=== PATIENT | female | born 1970 | race Caucasian/White ===

== ENCOUNTER 2021-12-29 10:38 | Day surgery (SDC) | payer OTHER, BC, SELFPAY ==
[2021-12-26] MEDS: OXYCODONE (CR) 10 MG TAB.ER.12H PO (11:00)
[2021-12-26] MEDS: CELECOXIB 200 MG CAPSULE PO (11:00)
[2021-12-26] MEDS: CEFAZOLIN 2 GM INJ IVP (13:13)
[2021-12-29] VITALS (27 sets, daily range): BP systolic 99–128; BP diastolic 63–86; PULSE 56–79; RESP 12–16; TEMP 36.4–36.8; O2SAT 91–99; BMI 28.8
[2021-12-29] MEDS: fentaNYL 100 MCG/2 ML inj IVP (10:53)
[2021-12-29] MEDS: ACETAMINOPHEN 500 MG TABLET 1000 MG PO (11:00)
[2021-12-29] MEDS: LACTATED RINGERS 1000 ML 1,000 ML 100 ML IV ×2 (11:00→14:43)
[2021-12-29] MEDS: MIDAZOLAM HCL 1 MG/ML inj IVP (12:55)
--- NOTE | 2021-12-29 13:25 | P.NB_ITS ---
Nerve Block Nerve Block Time Seen by Provider: 13:00 Date Seen: 12/29/21 Type of block requested by surgeon for post-operative analgesia: interscalene Side: right Time out performed: Yes Verification of patient name: Yes Verification of date of : Yes Site marking: site marked Name of person performing procedure: Ethan Continuous monitoring Was continuous monitoring of O2 sat, B/P, manager cardiac cath, recorded every 15 minutes?: Yes Procedure Checklist: sterile prep, needles and gloves Ultrasound guided. Images saved: Yes Medications given in 5ml increments after negative aspiration: Ropivicaine %: 0.5 mL: 20 Needle gauge: 22 Decadron (mg): 10 Precedex (mcg): 25 Patient tolerated procedure well: Yes
--- NOTE | 2021-12-29 14:42 | SUR.OPER ---
PATIENT QUESTIONS ANSWERED SATISFACTORILY PREOPERATIVELY. PATIENT BROUGHT TO OR #4 PER CART FOLLOWING THE BLOCK. Patient positioned supine on OR #4 bed for the intubation.? Perioperative team wrapped the?left arm in a neutral position on the pt. abdomen with the drawsheet.?Right arm elevated on an IV pole in a padded strap. Final approval of positioning by surgeon. CONTINUOUS IRRIGATION OF THE LEFT SHOULDER WITH MIXTURE OF 3000 NACL AND 1mg OF EPINEPHRINE DURING PROCEDURE.
--- NOTE | 2021-12-29 14:43 | P.ORPRC_ITS ---
Procedure Note Procedure: SURGEON: Yosef Henao MD TEACHING PASTOR: Yenny Vale PA-C PREOPERATIVE DIAGNOSIS: Right shoulder rotator cuff tear, biceps tendinopathy POSTOPERATIVE DIAGNOSIS: Right shoulder rotator cuff tear, biceps tendinopathy NAME OF OPERATION: Right shoulder arthroscopic subacromial decompression, mini open rotator cuff repair, biceps tenodesis ANESTHESIA: Supraclavicular block plus general endotracheal ESTIMATED BLOOD LOSS: 5 mL COMPLICATIONS: None SPECIMENS: None DRAINS: None PREOPERATIVE ANTIBIOTICS: Ancef 2 grams INDICATIONS: The patient is a 51-year-old female with a history of right shoulder pain secondary to the above diagnoses. Despite appropriate non operative management, they continue to have symptoms. Operative intervention was recommended. The risks, benefits and expected outcomes were discussed in detail. These included but were not limited to: Infection, bleeding, injury to blood vessel or nerve, venous thromboembolism. All questions were answered to their satisfaction. PROCEDURE: A supraclavicular block was placed by Anesthesia. General anesthesia was administered. The patient was placed in the high beach chair position. The right shoulder was prepped and draped in the usual sterile fashion. The glenohumeral joint was infiltrated with 20 mL of normal saline with epinephrine. The posterior portal was established, the arthroscope was introduced. The anterior portal was established, Diagnostic arthroscopy was performed with findings as follows: The biceps has a marked amount of intra- articular tendinopathy. The anterior, posterior and superior labrum are normal. Articular surfaces on the humeral head and glenoid are normal. There are no loose bodies. There is a full-thickness tear of the supraspinatus. The biceps was tenotomized with the arthroscopic scissors. The stump was debrided with the shaver. The arthroscope was placed in the subacromial space, the lateral portal was established. The Arthrex [place] was used to dissect the acromion free. The CA ligament was recessed off the anterior acromion, the AC joint was exposed. The acromioplasty was performed with the bur in the posterior portal. The bur was then placed in the lateral portal and the lateral and anterior aspect of the acromion were resected. The undersurface of the distal clavicle was resected through the lateral portal. Finally, the bur was placed in the anterior portal and the remainder of the distal clavicle was resected for a total of 10 mm. An accessory anterolateral portal was placed. The subacromial/subdeltoid bursa was aggressively debrided. There is a full-thickness tear of the supraspinatus. Arthroscopic instruments were removed. The accessory anterolateral portal was extended proximally and distally, subcutaneous dissection was taken with electrocautery to the deltoid. The deltoid was divided in line with its fibers. The static retractor was placed. The subacromial/subdeltoid bursa was debrided with the Mcdonough scissors. The greater tuberosity was debrided to punctate bleeding bone using the [place]pert rongeur. A whip stitch was placed in the biceps with a FiberLink and the scorpion. Two Arthrex Bio[employer]posite SwiveLock anchors were placed just off the articular surface. We incorporated the biceps into the eyelet of the more anterior anchor, completing the biceps tenodesis. Both limbs of the FiberWire and fiber tape were passed using the scorpion. A fiber link was placed in the leading edge of the rotator cuff x2. We tied the 2 central FiberWire sutures over the rotator cuff. We then proceeded with a lateral row of SwiveLock anchors x 2 crossing the FiberTape and incorporating the FiberWire and fiber link into each lateral row anchor. This provides an anatomic, watertight repair of the rotator cuff. There is no tension on the repair with the shoulder at 0? abduction. The wound was irrigated with normal saline off the pump. The deltoid was repaired with an 0 Vicryl in an interrupted [id number] fashion. Subcutaneous tissues were closed with a 3-0 Vicryl. Skin was closed with a 3-0 Monocryl in a subcuticular fashion. A dry dressing, polar care and sling were applied. Sponge and needle counts were correct x2. The patient tolerated the procedure well. There were no apparent complications. They were carefully transferred to the hospital bed and taken to the postanesthesia care unit in satisfactory condition. PLAN: The patient will be discharged to home. No active range of motion of the shoulder will be allowed for 6 weeks postoperatively. They can work on active range of motion of the elbow, wrist and fingers. They will follow up in the office next week for a wound check and an AP and transscapular Y-view of the shoulder prior to being seen.
--- NOTE | 2021-12-29 15:09 | W.ANESCHARGE ---
Anesthesia Charges Start Date/Time Anesthesia Start Date: 12/29/21 Anesthesia Start Time: 13:07 Stop Date/Time Anesthesia Stop Date: 12/29/21 Anesthesia Stop Time: 15:03 Summary Emergency: No
--- NOTE | 2021-12-29 15:38 | W.ANESCHARGE ---
Anesthesia Charges Start Date/Time Anesthesia Start Date: 12/29/21 Anesthesia Start Time: 13:07 Stop Date/Time Anesthesia Stop Date: 12/29/21 Anesthesia Stop Time: 15:03 Summary Emergency: No
--- NOTE | 2022-01-02 16:04 | SUR.PHASEI ---
entry of Phase I nurse and time done by this nurse. Documentation of care done by Shawnee Guo RN. Time based on entry to Phase II care in charting.
== END 2021-12-29 16:47 | disposition home or self-care (01) ==
PROVIDERS: PCP Family Medicine; Visit Provider Orthopaedic Surgery
PROC: (CPT 23412; principal; 2021-12-29 12:00)
DX: M75.101 Unspecified rotator cuff tear or rupture of right shoulder, not specified as traumatic (principal); M75.21 Bicipital tendinitis, right shoulder
CPT/HCPCS: 29826; 29828; 23412; 01630; 64415; 76942; A9270; C1713; J0690; J1100; J2250; J2370; J2704; J2795; J3010; J7120; L3670

== ENCOUNTER 2024-01-19 14:06 | Outpatient (CLI) | payer BC, SELFPAY | END 2024-01-19 14:07 | disposition home or self-care (01) | LOC: NFLDREF 01-20 03:12 | PROVIDERS: PCP Family Medicine; Referring Provider Family Medicine; Visit Provider Nurse Practitioner Family | DX: A49.9 Bacterial infection, unspecified (principal); N39.0 Urinary tract infection, site not specified | CPT/HCPCS: 87086 ==

== ENCOUNTER 2025-04-04 11:04 | Outpatient (CLI) | payer BC, SELFPAY | END 2025-04-04 11:05 | disposition home or self-care (01) | LOC: NFLDREF 04-06 12:38 | PROVIDERS: PCP Family Medicine; Referring Provider Family Medicine; Visit Provider Physician Assistant Surgical | DX: R30.0 Dysuria (principal) | CPT/HCPCS: 87086 ==